=== PATIENT | female | born 1975 | race African-American/Black ===

== ENCOUNTER 2018-08-27 15:16 | Emergency (ER) | payer MEDICAID, OTHER ==
[~2018-08-27] VITALS: Ht 160 cm; Wt 87.0 kg
[2018-08-27] MEDS ORDERED: HYDROCODONE/ACETAMINOPHEN 5/325MG TABLET PO ONE (18:15)
[2018-08-27] MEDS ORDERED: ONDANSETRON 4MG ODT PO ONE (18:15)
[2018-08-27 20:07] VITALS: BP 140/84
== END 2018-08-27 20:08 | disposition home or self-care (01) ==
LOC: ER 15:16
DX: S82.832A Other fracture of upper and lower end of left fibula, initial encounter for closed fracture (principal); F12.10 Cannabis abuse, uncomplicated; W10.8XXA Fall (on) (from) other stairs and steps, initial encounter; Y93.89 Activity, other specified; Y92.89 Other specified places as the place of occurrence of the external cause; Y99.8 Other external cause status
CPT/HCPCS: 29515; 73610; 73630; 81025; 99283; Q0162